=== PATIENT | female | born 1990 | race African-American/Black ===

== ENCOUNTER 2016-05-06 09:46 | Emergency (ER) | payer OTHER ==
[~2016-05-06 09:46] MED LIST: AUGMENTIN875 MG PO; CIPRO PO; DIFLUCAN PO; FLEXERIL10 M1 PO; IBUPROFEN800 MG PO; METRONIDAZOLE PO; NAPROSYN375 MG PO; PHENERGAN PO; PHENERGAN25 M1 PO; TYLENOL #3 PO; VIBRAMYCIN100 M1 PO
[2016-05-06 10:02] LABS: INFLUENZA A NEG (NEG); INFLUENZA B NEG (NEG)
== END 2016-05-06 11:40 | disposition home or self-care (01) ==
LOC: CED 09:46
PROVIDERS: Emergency Medicine
DX: B34.9 Viral infection, unspecified (principal); F17.200 Nicotine dependence, unspecified, uncomplicated
CPT/HCPCS: 87651; 87804; 94640; 99283